=== PATIENT | male | born 2000 ===

== ENCOUNTER 2021-01-22 19:36 | Outpatient (REF) | payer BC, SELFPAY ==
[2021-01-24 15:45] LABS: HSV 1 DNA Result Positive (Negative); HSV 2 DNA Result Negative (Negative)
== END 2021-01-22 19:37 | disposition home or self-care (01) ==
LOC: LBN 19:36
PROVIDERS: Visit Provider Family Medicine
DX: K13.70 Unspecified lesions of oral mucosa (principal)
CPT/HCPCS: 87529